=== PATIENT | female | born 1955 | race Two or more races ===

== ENCOUNTER 2024-12-05 13:13 | Emergency (ER) | payer MEDICARE, OTHER ==
[~2024-12-05] VITALS: Ht 162.6 cm; Wt 47.6 kg
[2024-12-05] MEDS ORDERED: ONDANSETRON HCL/PF 4 MG/2 ML VIAL ONE (13:27)
[2024-12-05] MEDS: IV NS 0.9% 1,000 ML BAG IV ONE (13:30)
[2024-12-05] MEDS: IV LR 1000 ML 1,000 ML IV ONE (13:30)
[2024-12-05] MEDS: ONDANSETRON HCL/PF 4 MG/2 ML VIAL IVP ONE (13:35)
[2024-12-05 13:47] LABS: PLATELET COUNT (AUTO) 327 K/uL (150-450); RED BLOOD CELL COUNT(AUTO) 4.07 MIL/uL (4.0-5.2); RED CELL DISTRIBUTION WIDTH 12.1 % (11.5-15.0); WHITE BLOOD COUNT (AUTO) 4.3 K/uL (4.3-11.0)
[2024-12-05 13:59] LABS: CALCIUM, SERUM 10.7 mg/dL (8.5-10.1); CREATININE 1.5 mg/dL (0.6-1.3); SODIUM SERUM 139 mmol/L (136-145); UREA NITROGEN, BLOOD 17 mg/dL (7-18)
[2024-12-05] MEDS: POTASSIUM CHLORIDE 20 MEQ TAB.PRT.SR PO ONE (14:30)
[2024-12-05] MEDS: IV PREMIX D5 1/2NS + KCL 1,000 ML IV ONE (14:30)
[2024-12-05] MEDS ORDERED: POTASSIUM CHLORIDE 20 MEQ TAB.PRT.SR PO ONE (14:39)
[2024-12-05 14:41] LABS: LACTIC ACID 2.5 mmol/L (0.4-2.0)
[2024-12-05] MEDS ORDERED: CT SWABBABLE VALVE TRANS SET 1 EA INFUS.SET MC ONE (14:58)
[2024-12-05] MEDS ORDERED: IOHEXOL-300 100 ML VIAL IV ONE (14:58)
[2024-12-05] MEDS ORDERED: IV NS 0.9% 250 ML IV ONE (14:58)
[2024-12-05] MEDS ORDERED: POTA25TA7 PO (16:25)
[2024-12-05 16:51] VITALS: BP 131/51; TEMP 98.2; O2SAT 98
== END 2024-12-05 16:51 | disposition home or self-care (01) ==
LOC: ER 13:19
DX: R55 Syncope and collapse (principal); E87.6 Hypokalemia; E03.9 Hypothyroidism, unspecified; M81.0 Age-related osteoporosis without current pathological fracture; F90.9 Attention-deficit hyperactivity disorder, unspecified type; F41.9 Anxiety disorder, unspecified; Z88.0 Allergy status to penicillin
CPT/HCPCS: 99285; 74177; 96365; 96366; 71045; 93005; 82247; 82248; 85025; 80048; 83605; 36415; 84484 ×2; J2405; J7120 ×2; J7030; J7050; J3490; Q9967